=== PATIENT | female | born 1975 ===

== ENCOUNTER 2019-08-08 09:36 | Outpatient (CLI) | payer SELFPAY ==
[2019-08-08 10:07] LABS: HCT 28.6 % (36.0-46.0); HGB 9.5 g/dL (12.0-15.5); Mean Corp. HGB Concentration 33.2 g/dL (32.0-36.0); Mean Corpuscular Hemoglobin 27.6 pg (27.0-33.0); Mean Corpuscular Volume 83.1 fL (80-95); Mean Platelet Volume 8.6 fL (8.0-11.0); Platelet Count 343 x1000/uL (130-400); RBC 3.44 m/cumm (4.00-5.20); RBC Distribution Width 13.5 % (11.7-14.6); White Blood Cell Count 4.02 k/cumm (4.4-10.8)
[2019-08-08 10:28] LABS: PTT Activated 26.5 sec (21.0-31.4); Prothrombin Time 9.9 sec (9.3-11.0)
[2019-08-08 11:01] LABS: Anion Gap 9.7 mmol/L (3-11); BUN 12 mg/dL (7-18); CO2 25.3 mmol/L (21.0-32.0); CREATININE 0.45 mg/dL (0.55-1.02); Calcium 8.9 mg/dL (8.5-10.1); Chloride 106 mmol/L (98-107); Ferritin 6 ng/mL (8-388); Glucose 90 mg/dL (70-100); Potassium 3.9 mmol/L (3.5-5.1); Sodium 141 mmol/L (136-145)
[2019-08-08 17:33] LABS: Fibrinogen 236 mg/dl (171-384)
== END 2019-08-08 09:56 ==
PROVIDERS: PCP Family Medicine; Visit Provider Family Medicine
DX: D50.9 Iron deficiency anemia, unspecified (principal)
CPT/HCPCS: 36415; 80048; 85027; 85384; 82728; 85610; 85730

== ENCOUNTER 2021-03-25 15:28 | Outpatient (REF) | payer SELFPAY ==
--- NOTE | 2021-03-25 13:30 | PAPFT_PTH ---
PATIENT: LIO SCHWAB LOC: [facility]#:[id number] AGE/SX: 45/F ROOM: RE03/25/[address]: Karely Chiang : 1975 BED: DIS: 03/25/2021 SPEC #: [id number] RECD: 03/26/21 12:47 STATUS: VANGIE REBrandon #: [id number] CARLOS: 03/25/21 13:[address]: Karely Chiang DEPT: [facility] Cytology RECD BY: Collette Esposito Tissues: 1 - CX/ENDOCX FOR PAP SMEARS Procedures: PAP THIN PREP/[facility] Screening HPV DNA PROBE Comments: [id number]
== END 2021-03-25 15:29 | disposition home or self-care (01) ==
LOC: NCHCN 15:28
PROVIDERS: PCP Family Medicine; Visit Provider Family Medicine
DX: Z00.00 Encounter for general adult medical examination without abnormal findings (principal); Z12.4 Encounter for screening for malignant neoplasm of cervix; Z11.51 Encounter for screening for human papillomavirus (HPV)
CPT/HCPCS: 88142; 87624